=== PATIENT | female | born 1995 | race Two or more races ===

== ENCOUNTER 2017-03-22 21:24 | Emergency (ER) | payer OTHER ==
[~2017-03-22] VITALS: Ht 160 cm; Wt 54.4 kg
--- NOTE | 2017-03-22 21:28 | NUR ---
PT PRESENTED TO THE ER WITH A C/O RT FLANK PAIN THAT STARTED TODAY. PT DENIES PAIN AND BURNING WITH URINATION. PT STATED THAT IT WAS DIFFICULT TO DESCRIBE THE PAIN - MORE DISCOMFORT. PT IS ON THE MONITOR AND CONTINUOUS PULSE OX.
[2017-03-22] MEDS ORDERED: ONDANSETRON HCL/PF 4 MG/2 ML VIAL IVP ONE (23:00)
[2017-03-22] MEDS ORDERED: IV NS 0.9% 1,000 ML BAG IV ONE (23:00)
[2017-03-22] MEDS ORDERED: MORPHINE SULFATE INJ 2 MG/ML DISP.SYRIN IV ONE (23:00)
[2017-03-22] MEDS ORDERED: ONDANSETRON HCL/PF 4 MG/2 ML VIAL ONE (23:05)
[2017-03-22] MEDS ORDERED: IV NS 0.9% 1,000 ML ONE (23:05)
[2017-03-22] MEDS ORDERED: MORPHINE SULFATE INJ 4 MG/ML DISP.SYRIN ONE (23:05)
[2017-03-22] MEDS ORDERED: IV SET PRIMARY 1 EA INFUS.SET MC ONE ×2 (23:05→23:35)
[2017-03-22 23:18] LABS: BASOPHILS % (AUTO) 0.2 % (0.0-2.0); EOSINOPHILS % (AUTO) 0.4 % (0.0-6.0); HEMATOCRIT 43 % (33-45); HEMOGLOBIN 14.7 g/dL (11.5-14.8); LYMPHOCYTES # (AUTO) 0.9 /CMM (0.8-4.8); LYMPHOCYTES % (AUTO) 7.7 % (20.0-44.0); MEAN CORPUSCULAR HEMOGLOBIN 32 PG (26.0-33.0); MEAN CORPUSCULAR HGB CONC 34 g/dl (31.0-36.0); MEAN CORPUSCULAR VOLUME 92 fL (82-100); MONOCYTES # (AUTO) 0.5 /CMM (0.1-1.30); MONOCYTES % (AUTO) 4.3 % (2.0-12.0); NEUTROPHILS # (AUTO) 10.5 /CMM (1.8-8.9); NEUTROPHILS % (AUTO) 87.4 % (43.0-81.0); PLATELET COUNT (AUTO) 227 /CMM (150-450); RDW COEFFICIENT OF VARIATION 12.2 (11.5-15.0); RED BLOOD CELL COUNT(AUTO) 4.66 MIL/uL (4.0-5.2)
[2017-03-22 23:24] LABS: APPEARANCE,URINE SL CLOUDY (CLEAR); BILIRUBIN,URINE NEGATIVE (NEGATIVE); BLOOD, URINE TRACE-INTA Ery/uL (NEGATIVE); COLOR,URINE YELLOW (YELLOW); KETONES,URINE NEGATIVE (NEGATIVE); LEUKOCYTE ESTERASE ,URINE 3+ (NEGATIVE); NITRITE, URINE NEGATIVE (NEGATIVE); PH,URINE 6.5 (5.0-8.0); PROTEIN,URINE NEGATIVE (NEGATIVE); UGLUCOSE NEGATIVE (NEGATIVE); UROBILINOGEN,URINE 0.2 EU/dL (0.2)
[2017-03-22 23:25] LABS: PREGNANCY TEST URINE QUAL NEGATIVE (NEGATIVE)
[2017-03-22 23:30] LABS: CALCIUM, SERUM 9.3 mg/dL (8.5-10.1); CREATININE 0.9 mg/dL (0.6-1.3); POTASSIUM 3.5 mmol/L (3.5-5.1)
[2017-03-22 23:33] LABS: ALBUMIN 4.5 g/dL (3.4-5.0); BACTERIA,URINE 2+ /HPF (None Seen); BILIRUBIN,DIRECT 0.1 mg/dL (0.0-0.2); BILIRUBIN,TOTAL 0.8 mg/dL (0.2-1.0); SQUAMOUS EPITHELIAL CELL,UR Few /HPF (None Seen); WBC,URINE 21-50 /HPF (0-3)
[2017-03-22] MEDS ORDERED: CEFTRIAXONE 1GM BAG (ER ONLY) 50 ML IV ONE (23:35)
--- NOTE | 2017-03-22 23:44 | NUR ---
PT IS GOING TO CT.
[2017-03-23] MEDS ORDERED: CEFTRIAXONE 1GM BAG (ER ONLY) 1 GM/50 ML PIGGYBACK IV ONE
[2017-03-23] MEDS ORDERED: KETOROLAC TROMETHAMINE INJ 30 MG/ML VIAL ONE (00:24)
[2017-03-23] MEDS ORDERED: ACETAMINOPHEN ES 500 MG TABLET ONE (00:29)
[2017-03-23] MEDS ORDERED: KETOROLAC TROMETHAMINE INJ 30 MG/ML VIAL IV ONE (00:30)
--- NOTE | 2017-03-23 00:34 | NUR ---
PT HAD ORAL TEMP OF 101.8F DR. PAIGE IS AWARE.
--- NOTE | 2017-03-23 00:36 | NUR ---
PT REC'D TORADOL IVP ORDERED.
[2017-03-23 00:37] VITALS: BP 101/65
== END 2017-03-23 00:38 | disposition home or self-care (01) ==
LOC: ER 21:32
DX: N39.0 Urinary tract infection, site not specified (principal)
CPT/HCPCS: 36415; 72128; 74176; 80048; 80076; 81001; 83690; 84703; 85025; 87077; 87086; 87186; 96365; 96375; 99285; A4606; J0696; J1885; J2270; J2405; J7030; Z7610; 81000-TC

== ENCOUNTER 2018-09-13 23:56 | Emergency (ER) | payer OTHER ==
[~2018-09-13] VITALS: Ht 160 cm; Wt 52.2 kg
[2018-09-14] VITALS: BP 144/74
[2018-09-14 00:22] LABS: APPEARANCE,URINE CLEAR (CLEAR); BILIRUBIN,URINE NEGATIVE (NEGATIVE); BLOOD, URINE NEGATIVE Ery/uL (NEGATIVE); KETONES,URINE NEGATIVE (NEGATIVE); LEUKOCYTE ESTERASE ,URINE NEGATIVE (NEGATIVE); NITRITE, URINE NEGATIVE (NEGATIVE); PH,URINE 6.5 (5.0-8.0); PROTEIN,URINE NEGATIVE (NEGATIVE); UGLUCOSE NEGATIVE (NEGATIVE); UROBILINOGEN,URINE 0.2 EU/dL (0.2)
[2018-09-14 00:24] LABS: COLOR,URINE STRAW (YELLOW)
== END 2018-09-14 00:51 | disposition home or self-care (01) ==
LOC: ER 23:58
DX: R35.0 Frequency of micturition (principal); M54.5 Low back pain; Z88.1 Allergy status to other antibiotic agents
CPT/HCPCS: 81000-TC; 84703-TC; 87086-TC; A4606

== ENCOUNTER 2019-04-29 14:37 | Emergency (ER) | payer OTHER ==
[~2019-04-29] VITALS: Ht 160 cm; Wt 54.4 kg
--- NOTE | 2019-04-29 15:01 | NUR ---
C/O ABD ON AND OFF CRAMPS STARTED THIS MORNING, -N/V, PT STATES SHE MIGHT BE . NO ACUTE DISTRESS NOTED, AND NO OTHER COMPLAINTS AT THIS TIME. IN GOWN AND READY FOR EVAL.
--- NOTE | 2019-04-29 15:30 | NUR ---
US TECH AT BEDSIDE
[2019-04-29 15:31] LABS: BASOPHILS % (AUTO) 0.5 % (0.0-2.0); HEMATOCRIT 43 % (33-45); HEMOGLOBIN 14.9 g/dL (11.5-14.8); LYMPHOCYTES # (AUTO) 1.4 /CMM (0.8-4.8); LYMPHOCYTES % (AUTO) 21.8 % (20.0-44.0); MEAN CORPUSCULAR HGB CONC 35 g/dl (31.0-36.0); MEAN CORPUSCULAR VOLUME 93 fL (82-100); MONOCYTES # (AUTO) 0.4 /CMM (0.1-1.30); MONOCYTES % (AUTO) 5.7 % (2.0-12.0); NEUTROPHILS # (AUTO) 4.6 /CMM (1.8-8.9); PLATELET COUNT (AUTO) 213 /CMM (150-450); RED BLOOD CELL COUNT(AUTO) 4.61 MIL/uL (4.0-5.2); WHITE BLOOD COUNT (AUTO) 6.4 K/uL (4.3-11.0)
[2019-04-29 15:36] LABS: CREATININE 0.8 mg/dL (0.6-1.3); POTASSIUM 3.7 mmol/L (3.5-5.1)
[2019-04-29 15:52] LABS: ALBUMIN 4.1 g/dL (3.4-5.0); BILIRUBIN,DIRECT 0.1 mg/dL (0.0-0.2); BILIRUBIN,TOTAL 0.7 mg/dL (0.2-1.0); TOTAL PROTEIN, SERUM 7.5 g/dL (6.4-8.2)
[2019-04-29 15:53] LABS: APPEARANCE,URINE Clear (CLEAR); BILIRUBIN,URINE Negative (NEGATIVE); BLOOD, URINE Negative Ery/uL (NEGATIVE); COLOR,URINE Yellow (YELLOW); KETONES,URINE Negative (NEGATIVE); LEUKOCYTE ESTERASE ,URINE Negative (NEGATIVE); NITRITE, URINE Negative (NEGATIVE); PROTEIN,URINE Negative (NEGATIVE); UGLUCOSE Negative (NEGATIVE); UROBILINOGEN,URINE 0.2 EU/dL (0.2)
--- NOTE | 2019-04-29 16:35 | NUR ---
Patient discharged to home in stable condition. Written and verbal after care instructions given. Patient verbalizes understanding of instruction.
[2019-04-29 17:04] VITALS: BP 117/72
== END 2019-04-29 16:35 | disposition home or self-care (01) ==
LOC: ER 14:37
DX: O26.891 Other specified pregnancy related conditions, first trimester (principal); R10.30 Lower abdominal pain, unspecified; Z88.8 Allergy status to other drugs, medicaments and biological substances; Z3A.00 Weeks of gestation of pregnancy not specified
CPT/HCPCS: 36415; 76805-TC; 80048-TC; 80076-TC; 81000-TC; 84702-TC; 85025-TC; 87086-TC

== ENCOUNTER 2019-05-02 15:07 | Emergency (ER) | payer OTHER ==
[~2019-05-02] VITALS: Ht 170.2 cm; Wt 60.8 kg
--- NOTE | 2019-05-02 15:25 | NUR ---
to ed for recheck of hcg quant. Patient a/ox4, no distress noted. needs attended.
[2019-05-02 15:29] VITALS: BP 120/76
--- NOTE | 2019-05-02 15:30 | NUR ---
Ankush MARLEY at bedside.
[2019-05-02 15:53] LABS: BASOPHILS % (AUTO) 0.8 % (0.0-2.0); EOSINOPHILS % (AUTO) 1.3 % (0.0-6.0); HEMATOCRIT 40 % (33-45); HEMOGLOBIN 13.8 g/dL (11.5-14.8); LYMPHOCYTES # (AUTO) 1.6 /CMM (0.8-4.8); LYMPHOCYTES % (AUTO) 27.5 % (20.0-44.0); MEAN CORPUSCULAR HGB CONC 35 g/dl (31.0-36.0); MEAN CORPUSCULAR VOLUME 91 fL (82-100); MONOCYTES # (AUTO) 0.5 /CMM (0.1-1.30); MONOCYTES % (AUTO) 8.9 % (2.0-12.0); NEUTROPHILS # (AUTO) 3.5 /CMM (1.8-8.9); NEUTROPHILS % (AUTO) 61.5 % (43.0-81.0); PLATELET COUNT (AUTO) 208 /CMM (150-450); RED BLOOD CELL COUNT(AUTO) 4.37 MIL/uL (4.0-5.2); WHITE BLOOD COUNT (AUTO) 5.7 K/uL (4.3-11.0)
[2019-05-02 15:57] LABS: CALCIUM, SERUM 8.7 mg/dL (8.5-10.1); CREATININE 0.8 mg/dL (0.6-1.3); POTASSIUM 3.8 mmol/L (3.5-5.1)
== END 2019-05-02 17:22 | disposition home or self-care (01) ==
LOC: ER 15:10
DX: O26.891 Other specified pregnancy related conditions, first trimester (principal); R10.9 Unspecified abdominal pain; Z88.8 Allergy status to other drugs, medicaments and biological substances; Z3A.00 Weeks of gestation of pregnancy not specified
CPT/HCPCS: 36415; 76805-TC; 80048-TC; 84702-TC; 85025-TC

== ENCOUNTER 2025-02-07 12:38 | Emergency (ER) | payer OTHER ==
[~2025-02-07] VITALS: Ht 160 cm; Wt 56.7 kg
[2025-02-07 13:09] LABS: APPEARANCE,URINE CLEAR (CLEAR); BILIRUBIN,URINE NEGATIVE (NEGATIVE); BLOOD, URINE 1+ Ery/uL (NEGATIVE); COLOR,URINE YELLOW (YELLOW); KETONES,URINE NEGATIVE (NEGATIVE); LEUKOCYTE ESTERASE ,URINE 2+ (NEGATIVE); NITRITE, URINE NEGATIVE (NEGATIVE); PROTEIN,URINE NEGATIVE (NEGATIVE); UGLUCOSE NEGATIVE (NEGATIVE); UROBILINOGEN,URINE 0.2 EU/dL (0.2)
[2025-02-07 13:11] LABS: PREGNANCY TEST URINE QUAL NEGATIVE (NEGATIVE)
[2025-02-07 13:13] LABS: ADD URINE CULTURE YES; BACTERIA,URINE Rare /HPF (None Seen)
[2025-02-07] MEDS ORDERED: CEPH-570 PO (13:24)
[2025-02-07 13:38] VITALS: BP 138/68; TEMP 98; O2SAT 99
== END 2025-02-07 13:39 | disposition home or self-care (01) ==
LOC: ER 12:45
DX: N39.0 Urinary tract infection, site not specified (principal); M54.50 Low back pain, unspecified; Z88.3 Allergy status to other anti-infective agents
CPT/HCPCS: 81001; 84703-TC; 87086-TC